=== PATIENT | female | born 2000 | race African-American/Black ===

== ENCOUNTER 2024-10-13 11:15 | Emergency (ER) | payer MEDICAID, OTHER ==
[~2024-10-13] VITALS: Ht 172.7 cm; Wt 97.0 kg
[2024-10-13 11:18] VITALS: O2SAT 98
[2024-10-13 12:20] LABS: BASOPHILS % 1.1 % (0.0-2.0); EOSINOPHILS % 0.5 % (0.0-5.0); HEMATOCRIT. 31.2 % (36.0-48.0); HEMOGLOBIN. 9.6 g/dL (12.0-16.0); LYMPHOCYTES % 16.8 % (20.0-50.0); MEAN PLATELET VOLUME 8.4 fl (7.4-10.4); MONOCYTES % 6.1 % (2.0-8.0); NEUTROPHILS % 75.5 % (40.0-76.0); PLATELET 383 x1000/uL (130-400); RED BLOOD CELL COUNT 4.85 mill/uL (4.2-5.4); RED CELL DISTRIBUTION WIDTH 19.8 % (11.6-14.6)
[2024-10-13 12:21] LABS: ADD RBC MORPHOLOGY YES
[2024-10-13 12:35] LABS: PLATELET ESTIMATE NORMAL
[2024-10-13 12:58] LABS: HCG SCREEN NEGATIVE
[2024-10-13 13:02] LABS: CREATININE 0.6 mg/dL (0.6-1.0)
[2024-10-13 13:03] LABS: TROPONIN I HIGH SENSITIVITY < 4 ng/L (3.0-34); UREA NITROGEN BLOOD 9 mg/dL (9-23)
[2024-10-13] MEDS ORDERED: FERR324T4 MT (14:49)
[2024-10-13] MEDS ORDERED: IOHEXOL-350 100 ML BOTTLE ONE (14:55)
[2024-10-13 15:00] VITALS: BP 108/74; PULSE 75; RESP 18; TEMP 36.8; O2SAT 100
== END 2024-10-13 15:01 | disposition home or self-care (01) ==
LOC: ER 11:16
DX: R06.02 Shortness of breath (principal); D50.9 Iron deficiency anemia, unspecified
CPT/HCPCS: 99285; 71275; 71045; 80048; 84703; 85025; 85379; 84484; 36415; 93005; Q9967